=== PATIENT | female | born 1985 | race Caucasian/White ===

== ENCOUNTER → 2017-02-04 | Outpatient (CLI) | payer BC ==
[2017-02-04 12:18] LABS: BILIRUBIN,URINE NEGATIVE (NEG); CLARITY,URINE Slightly Cloudy (CLEAR); COLOR,URINE YELLOW; GLUCOSE, URINE (UA) NEGATIVE (NEG); NITRATE,URINE NEGATIVE (NEG); OCCULT BLOOD,URINE LARGE (NEG); PH,URINE 6.5 (5.0-8.5); PROTEIN,URINE 30 mg/dl (NEG); UROBILINOGEN,URINE 0.2 mg/dL (0.2)
[2017-02-04 12:26] LABS: BACTERIA,URINE FEW; RBC,URINE 25-50 /hpf; SQUAMOUS EPITHELIAL CELL,UR FEW; URINE SAMPLE TYPE VOIDED SPECIMEN
[2017-02-04 12:27] LABS: WBC,URINE 50-100
== END ==
LOC: MOB LAB 11:10
PROVIDERS: ATTEND Nurse Practitioner Family
DX: R30.0 Dysuria (principal)
CPT/HCPCS: 81001

== ENCOUNTER 2018-01-08 05:54 | Inpatient (IN) ==
[~2018-01-08 05:54] MED LIST: LIDOCAINE HCL 2 % 10 ML JELLY URO-JECT TOPICAL PRN
[2018-01-08] MEDS ORDERED: LIDOCAINE W/ SODIUM BICARB 0.5 ML SYR SUBD PRN ×2 (06:00→07:20)
[2018-01-08] MEDS ORDERED: CefOXitin Inj 2 GM in Sodium Chloride 0.9% 100 ML IV ONE (06:00)
[2018-01-08] MEDS ORDERED: CITRIC ACID/SODIUM CITRATE 30 ML CUP PO ONE (06:00)
[2018-01-08] MEDS ORDERED: Lactated Ringers 1,000 ML PRIMARY IV ONE (06:00)
[2018-01-08] MEDS ORDERED: FAMOTIDINE 20 MG/2 ML VIAL IVP ONE (06:00)
[2018-01-08] MEDS ORDERED: Oxytocin 20 Units + LR 20 UNIT/1,000 ML BAG IV SCH ×2 (06:00→10:29)
[2018-01-08] MEDS ORDERED: Lactated Ringers 1,000 ML PRIMARY IV SCH ×2 (06:00→07:30)
[2018-01-08] MEDS ORDERED: Metoclopramide Inj 10 MG/2 ML VIAL IV ONE (06:00)
[2018-01-08 06:47] LABS: Hematocrit [HCT] 41.3 % (37.0-47.0); Hemoglobin [HGB] 14.3 g/dL (12.0-16.0); MEAN CORPUSCULAR HEMOGLOBIN 29.7 PG (27-31); MEAN CORPUSCULAR HGB CONC 34.6 g/dL (33-37); MEAN CORPUSCULAR VOLUME 85.9 FL (81-99); MEAN PLATELET VOLUME 10.1 FL (7.4-12.2); RED BLOOD COUNT 4.81 10^6/uL (4.20-5.40)
[2018-01-08] MEDS ORDERED: ONDANSETRON 4 MG/2 ML VIAL IVP PRN ×2 (07:20→10:29)
[2018-01-08] MEDS ORDERED: HYDROmorphone 2 MG/1 ML IVP PRN (07:20)
[2018-01-08] MEDS ORDERED: fentaNYL Inj 100 MCG/2 ML VIAL IVP PRN (07:20)
[2018-01-08] MEDS ORDERED: ATROPINE SULFATE 0.4 MG/1 ML VIAL IVP PRN (07:20)
[2018-01-08] MEDS ORDERED: Ondansetron ODT Tab 8 MG TAB PO PRN (07:20)
--- NOTE | 2018-01-08 09:14 | CRNA.PROGR ---
Anesthesia Time - - Start date: 01/08/18 End date: 01/08/18 - Procedure/Recovery Time Anesthesia : Time In: 07:54 Anesthesia : Time Out: 09:05 Anesthesia : Total Time: 71 - Total Anesthesia Time Total Anesthesia Time (minutes): 71 - Other Weight: 119.295 kg Height: 5 ft 7 in Body Mass Index (BMI): 41.1 Physical Status: P2 Anesthesia Type: Spinal Block
--- NOTE | 2018-01-08 09:21 | CRNA.PROCE ---
Central Neuraxis Block Placemt - - Safety Measures: Time Out Taken - - Reason for Block: Surgical Moniters Used During Block: SPO2, NIBP Sedation Used - Enter Amount Used in Comment Field: Fentanyl (mcg): Yes (50) Skin Prep Used: ChloroPrep Draped: Yes Introducer User: None Spinal Needle Used: 22 Renan 120 mm Local Anesthetic - Enter Amount Used in Comment Field: 0.75 % Bupivacaine with Dextrose (ml): Yes (1.8 ml) Anesthesia Time - Other Weight: 119.295 kg Height: 5 ft 7 in Body Mass Index (BMI): 41.1
--- NOTE | 2018-01-08 09:22 | CRNA.PROGR ---
Anesthesia Recovery Phase I - Post Anesthesia Evaluation Patient's Condition on Arrival in Phase I: Stable Patient's Condition on Arrival in Phase II: Stable Pain Level: 1
--- NOTE | 2018-01-08 09:22 | CRNA.PROGR ---
Post Anesthesia Phase II - Post Anesthesia Phase II Patient Stable and Discharged To: OB Care Assumed By Surgeon: Manolo Chiang MD Temperature: 97.6 F Pulse Rate: 77 Respiratory Rate: 17 Blood Pressure: 138/74 Pulse Ox: 96 Total [place] Score at Discharge: 9 Post Anesthesia Discharge Criteria Met: Yes
--- NOTE | 2018-01-08 10:09 | OB.OP.NOTE ---
Operative Report Surgeon: Tiffanie Chiang MD Professor/Nurse Anesthetist: Michael Russell MD Anesthesia Type: Regional Anesthesia Provider: Vickie Sloan CRNA Surgery Date: 01/08/18 Preoperative Diagnosis: Previous section x 1 Postoperative Diagnosis: same, delivered Procedure: Repeat section Complications: none Estimated Blood Loss (mL): 800 Urine Output (mL): 100 Fluids: 3500 cc LR and 500 cc of LR with 20 mU of pitocin in it Indications: We do not offer vaginal after section trials at our facility and the patient did not desire this. She is requesting a repeat section. Findings: Viable male , in cephalic presentation. Clear amniotic fluid. Normal uterus, tubes and ovaries. Description of Procedure: The patient was taken to the operating room where spinal anesthesia was found to be adequate. She was then prepared and draped in the normal sterile fashion in the dorsal supine position with a leftward tilt. A Pfannenstiel skin incision was then made with the scalpel and carried through to the underlying layer of fascia with the Bovie. The fascia was incised in the midline and the incision extended laterally with the Bovie. The superior aspect of the fascial incision was then grasped with Kacey clamps, elevated, and the underlying rectus muscles dissected off bluntly. Attention was then turned to the inferior aspect of this incision which, in a similar fashion, was grasped with Kacey clamps and the rectus muscles dissected off both bluntly and with the Bovie. The rectus muscles was then in the midline, and the peritoneum identified, tented up, and entered in blunt fashion. The peritoneal incision was then extended superiorly and inferiorly with good visualization of the bladder. The Alfa retractor was then inserted and the vesicouterine peritoneum was identified. The lower uterine segment was incised in a transverse fashion with the scalpel. The uterine incision was then extended laterally in a blunt fashion. The infant's head was delivered atraumatically. The nose and mouth were suctioned with the bulb suction and the cord clamped and cut. The was handed off to the awaiting nurse. Cord gases and cord blood were sent for analysis. The placenta was then removed manually; the uterus exteriorized, and cleared of all clots and debris. The uterine incision was repaired with 0 Vicryl in a running, locked fashion. A second layer of the same suture was used to obtain excellent hemostasis. The peritoneal cavity was then copiously irrigated with warm saline. The uterus was returned to the abdomen. The paracolic gutters were copiously irrigated with warm saline and a second look at the uterine incision continued to reveal excellent hemostasis. The peritoneum was closed with 3-0 Vicryl. The fascia was reapproximated with 0 PDS in a running fashion. The subcutaneous space was irrigated with copiously with warm saline and then closed first with 3-0 Vicryl and then more superficially with Insorb absorbable sutures. The skin was reapproximated with Steri-Strips and a Silverlon dressing applied. Fundal massage was completed with no clots in vaginal vault. The patient tolerated the procedure well. Sponge, lap, and needle counts were correct x2. Ancef was given preoperatively less than one hour prior to incision time. The patient was taken to the recovery room in stable condition.
[2018-01-08] MEDS ORDERED: HYDROmorphone 2 MG/1 ML IV PRN (10:29)
[2018-01-08] MEDS ORDERED: CALCIUM CARBONATE 500 MG (TUMS) CHEWABLE TABLET PO PRN (10:29)
[2018-01-08] MEDS ORDERED: diphenhydrAMINE 25 MG CAPSULE PO PRN (10:29)
[2018-01-08] MEDS ORDERED: Nalbuphine Inj 20 MG/ML Ampule IVP PRN (10:29)
[2018-01-08] MEDS ORDERED: diphenhydrAMINE 50 MG/1 ML VIAL IV PRN (10:29)
[2018-01-08] MEDS ORDERED: FAMOTIDINE 20 MG/2 ML VIAL IVP PRN (10:29)
[2018-01-08] MEDS ORDERED: LANOLIN HPA 40 GM TUBE TOPICAL PRN (10:29)
[2018-01-08] MEDS ORDERED: Naloxone Inj 0.01 MG, Sodium Chloride 0.9% vial 1 ML IVP PRN ×2 (10:29)
[2018-01-08] MEDS ORDERED: DIPH,PERTUSS,TET(ADACEL) VAC/PF 0.5 ML (Tdap) IM ONE (10:29)
[2018-01-08] MEDS: oxyCODONE-ACETAMINOPHEN 5-325 TAB PO PRN ×3 (10:54→19:06)
[2018-01-08] MEDS: D5-LR 1,000 ML PRIMARY IV SCH (11:15)
[2018-01-08] MEDS: KETOROLAC 15 MG/1 ML VIAL IVP SCH ×2 (11:15→17:16)
[2018-01-09] MEDS: KETOROLAC 15 MG/1 ML VIAL IVP SCH ×3 (02:59→15:07)
[2018-01-09] MEDS: oxyCODONE-ACETAMINOPHEN 5-325 TAB PO PRN ×6 (03:00→23:05)
[2018-01-09 05:24] LABS: Hematocrit [HCT] 35.1 % (37.0-47.0); Hemoglobin [HGB] 11.7 g/dL (12.0-16.0); MEAN CORPUSCULAR HEMOGLOBIN 29.5 PG (27-31); MEAN CORPUSCULAR HGB CONC 33.3 g/dL (33-37); MEAN CORPUSCULAR VOLUME 88.6 FL (81-99); MEAN PLATELET VOLUME 10.2 FL (7.4-12.2); RED BLOOD COUNT 3.96 10^6/uL (4.20-5.40)
[2018-01-09] MEDS: D5-LR 1,000 ML PRIMARY IV SCH (07:09)
[2018-01-09] MEDS: Senna/Docusate Tab 1 TAB TAB PO SCH (08:52)
[2018-01-09] MEDS: Prenatal Multivitamin Tab 1 TAB TAB PO SCH (08:52)
[2018-01-09] MEDS ORDERED: IBUPROFEN 800 MG TABLET PO PRN (09:58)
--- NOTE | 2018-01-09 10:07 | OB.PROGRES ---
Subjective Post Op Day: 1 Pain Management: PO Funk Catheter: Yes Flatus: Yes Diet: Regular Feeding Method: Exculsively Ambulating: Yes Concerns / Additional Information: Mild lochia. Denies calf pain or tenderness. No chest pain or shortness of breath. Objective - General General Appearance: POSITIVE: No Acute Distress, Cooperative - Cardiovacular Cardiovascular Exam: POSITIVE: RRR, No Murmur Edema: +1 Pedal Edema Extremities: Negative Krishna's - Bilaterally - Respiratory Respiratory Exam: POSITIVE: Clear to Auscultation - Bilaterally, Breathing Non Labored - Abdomen Bowel Sounds: Present Abdominal Wound Assessment: Silverlone Dressing Assesstment / Plan (1) Status post repeat low transverse section Current Visit: Yes Status: Acute Assessment / Plan: -routine cares. -start heparin for BMI >40 for DVT prophylaxis. -rh positive -rubella immune. -breast feeding going well. -probable d/c home tomorrow.
--- NOTE | 2018-01-09 10:28 | CRNA.PROGR ---
Anesthesia Note - Progress Notes Anesthesia Progress Note: Up in a chair eating trail mix. Blessing still in. Denies headache and/or nausea. States she has some backache which she attributes to bed not Spinal anesthetic. States pain is controlled. She appears very comfortable. Laboratory Results 01/09/18 Range/Units 04:38 WBC 10.73 (4.8-10.8) 10^3/uL RBC 3.96 L (4.20-5.40) 10^6/uL Hgb 11.7 L (12.0-16.0) g/dL Hct 35.1 L (37.0-47.0) % MCV 88.6 (81-99) FL MCH 29.5 (27-31) PG MCHC 33.3 (33-37) g/dL RDW Std Deviation 42.8 (39-50) fL RDW Coeff of Karlee 13.6 (11.5-14.5) % Plt Count 201 (140-350) 10*3/uL MPV 10.2 (7.4-12.2) FL Vital Signs - Last Taken Temperature 98.1 F 01/09/18 09:00 Pulse Rate 79 01/09/18 09:00 Respiratory Rate 15 01/09/18 09:00 Blood Pressure 111/73 01/09/18 09:00 Pulse Ox 97 01/09/18 09:00 No apparent anesthetic difficulties.
[2018-01-09] MEDS: HEPARIN 5000 UNIT/1 ML SUBCUT SCH ×2 (11:01→18:15)
[2018-01-10] MEDS: HEPARIN 5000 UNIT/1 ML SUBCUT SCH ×2 (02:01→10:32)
[2018-01-10] MEDS: oxyCODONE-ACETAMINOPHEN 5-325 TAB PO PRN ×2 (02:55→12:34)
[2018-01-10] MEDS: Senna/Docusate Tab 1 TAB TAB PO SCH ×2 (06:08→09:58)
--- NOTE | 2018-01-10 09:31 | DCSUMMARY ---
Hospitalization Summary Admit Date: 01/10/18 Discharge Date: 01/12/18 Primary Diagnosis:: IUP at 39 1/7 weeks Secondary Diagnosis:: Previous section Primary Surgery and Date: Repeat on 01/08. Delivery Type: Hospital Course: Pt was admitted for repeat section. She had an uneventful surgery. For details of her , please see operative report dictated elsewhere in the chart. / Postop Complications: Pt had a very uneventful post-operative course. Her pain was well controlled with percocet. Her bowels were active. Baby was nursing well. No complications were noted. [place] Complications: none Exam - Vitals Vital Signs: Vital Signs Temperature 98.7 F Temperature Source Oral Pulse Rate [Apical] 81 Pulse Rate [Pulse Oximeter] 79 Pulse Rate 65 Respiratory Rate 14 Blood Pressure [Left Arm] 127/79 Blood Pressure 131/76 Pulse Ox 99 Oxygen Flow Rate RA Oxygen Delivery Method Room Air Height 5 ft 7 in Weight 263 lb - General General Appearance: No Acute Distress, Cooperative - Head Head Exam: Normal Inspection - Eye Eye Exam: POSITIVE: Normal Appearance - ENT ENT Exam: POSITIVE: Normal Exam - Neck Neck Exam: Normal Inspection, No Tenderness - Respiratory Respiratory Exam: POSITIVE: Clear to Auscultation - Bilaterally, Breathing Non Labored - Cardiovascular Cardiovascular Exam: POSITIVE: RRR, No Murmur - GI/Abdominal GI/Abdominal Exam: POSITIVE: Normal Bowel Sounds, Non Tender, Non Distended, Soft - Extremities Extremities Exam: POSITIVE: +2 Edema - Back Back Exam: POSITIVE: Normal Inspection, Full ROM - Neurological Neurological Exam: POSITIVE: Alert, Oriented x 3 - Psychiatric Psychiatric Exam: POSITIVE: Normal Affect, Normal Mood - Integumentary Integumentary Exam: POSITIVE: Normal Color, Warm Patient Problems - Patient Problem List (1) Status post repeat low transverse section Current Visit: Yes Status: Acute Code(s): Z98.891 - History of uterine scar from previous surgery Category: Medical
[2018-01-10 09:48] VITALS: BP 134/94; RESP 18; TEMP 98.3; O2SAT 95
[2018-01-10] MEDS: Prenatal Multivitamin Tab 1 TAB TAB PO SCH (09:58)
== END 2018-01-10 12:47 | disposition home or self-care (01) | DRG 766 ==
LOC: OBOR 05:54 → MED/SURG 09:30 → OBIP 14:57
PROVIDERS: ADMIT Family Medicine; ATTEND Family Medicine